=== PATIENT | male | born 1935 | race Caucasian/White ===

== ENCOUNTER 2024-08-14 07:55 | Inpatient (IN) | payer MEDICARE, OTHER ==
[2024-08-11 11:55] LABS: BILIRUBIN,URINE NEGATIVE (Neg); CLARITY,URINE CLEAR (Clear); COLOR,URINE YELLOW (Yellow); GLUCOSE, URINE NEGATIVE (Neg); KETONES,URINE NEGATIVE (Neg); LEUKOCYTE ESTERASE ,URINE NEGATIVE (Neg); NITRITES, URINE NEGATIVE (Neg); OCCULT BLOOD,URINE NEGATIVE (Neg); PROTEIN,URINE NEGATIVE (Neg); UROBILINOGEN,URINE 0.2 E.U/dL (0.2-1.0)
[2024-08-11 11:56] LABS: BASOPHILS # (AUTO) 0.1 X10'3 (0-0.2); BASOPHILS % (AUTO) 1.2 % (0-1); EOSINOPHILS # (AUTO) 0.3 X10'3 (0-0.9); EOSINOPHILS % (AUTO) 4.6 % (0-6); LYMPHOCYTES # (AUTO) 0.8 X10'3 (1.1-4.8); LYMPHOCYTES % (AUTO) 11.7 % (21-51); MEAN CORPUSCULAR HEMOGLOBIN 31.5 PG (27.0-31.0); MEAN CORPUSCULAR HGB CONC 34.4 g/dL (33.0-36.5); MEAN CORPUSCULAR VOLUME 91.7 FL (78-98); MEAN PLATELET VOLUME 7.9 FL (7.4-10.4); MONOCYTES # (AUTO) 0.7 X10'3 (0-0.9); MONOCYTES % (AUTO) 10.1 % (2-12); NEUTROPHILS # (AUTO) 4.9 X10'3 (1.8-7.7); NEUTROPHILS % (AUTO) 72.4 % (42-75); PRE OP HEMATOCRIT 31.4 % (42.0-52.0); PRE OP PLATELET COUNT 206 X10'3 (140-440); PRE OP WHITE BLOOD COUNT 6.8 10'3 (4.8-10.8); RED BLOOD COUNT 3.43 X10'6 (4.70-6.10); RED CELL DISTRIBUTION WIDTH 14.3 % (11.5-14.5)
[2024-08-11 11:59] LABS: PRE OP HEMOGLOBIN 10.8 g/dL (14.0-17.9)
[2024-08-11 12:00] LABS: UA COLLECTION TYPE CLN CATCH MIDSTREAM
[2024-08-11 12:08] LABS: PRE OP PROTIME 18.2 SECONDS (9.0-12.0)
[2024-08-11 12:14] LABS: PRE OP INR 1.8 INR
[2024-08-11 12:19] LABS: ALBUMIN 3.3 G/DL (3.4-5.0); ALBUMIN/GLOBULIN RATIO 0.9 (1.1-1.5); ALKALINE PHOSPHATASE 104 IU/L (46-116); BLOOD UREA NITROGEN 28 MG/DL (7-18); BUN/CREATININE RATIO 19.6 (10.0-20.0); CALCIUM 8.8 MG/DL (8.5-10.1); CHLORIDE 108 MMOL/L (99-107); CREATININE 1.43 MG/DL (0.60-1.10); PRE OP ALT 21 U/L (30-65); PRE OP ANION GAP 7 (8-16); PRE OP AST 23 U/L (10-37); PRE OP BILIRUB, TOTAL 0.9 MG/DL (0.0-1.0); PRE OP GLUCOSE 83 MG/DL (70-104); PRE OP POTASSIUM 3.5 MMOL/L (3.4-5.1); PRE OP SODIUM 145 MMOL/L (135-145); PRO BRAIN NATRIURETIC PEPTIDE 9639 PG/ML (0-450); TOTAL CARBON DIOXIDE 30.1 MMOL/L (24-32); TOTAL PROTEIN 6.9 G/DL (6.4-8.2); eGFR 47 ML/MIN
[~2024-08-14] VITALS: Ht 167.6 cm; Wt 69.7 kg
[2024-08-14] VITALS (35 sets, daily range): BP systolic 107–150; BP diastolic 51–84; PULSE 70–100; RESP 10–21; TEMP 97.2–98.1; O2SAT 91–100
[2024-08-14] MEDS: ceFAZolin 2gm in dextrose, iso 50 ML IV ONE (05:30)
[~2024-08-14 07:55] MED LIST: ASPI-1265 PO; ATOR40TA71 PO; BICA50TA7 PO; CLOP-32 PO; DICL50TA14 PO; DOCUMENT DATE & TIME OF BETA-BLOCKER PO ONE; ENOX40DI8 SUBCUT; FURO-150 PO; METO-395 PO; PANT40TA54 PO; VALS40TA11 PO; WARF4TAB69 PO; nitroPRUSSIDE (NIPRIDE) (200MCG/ML) 100ML Drip IV SCH; phenylephrine inj 50 MG in normal saline 250ml IV solN IV SCH; protamine sulfate 10mg/ml inj. ONE
[2024-08-14] MEDS ORDERED: ondansetron/PF 4mg/2ml inj IV PRN ×2 (08:55→12:30)
[2024-08-14] MEDS ORDERED: PHENYLephrine 10mg/ml inj. 100 MG in normal saline 250ml IV soln 240 ML IV SCH (08:55)
[2024-08-14] MEDS ORDERED: nitroPRUSSIDE sod inj. 50 MG in dextrose 5%-water 248 ML IV SCH (08:55)
[2024-08-14] MEDS: ringers solution, lacted 1,000 ML IV SCH ×2 (08:55→09:02)
[2024-08-14] MEDS ORDERED: morphine 4 MG/ML inj SYRINge IV PRN (08:55)
[2024-08-14] MEDS: famotidine 20mg tablet PO ONE (09:02)
[2024-08-14] MEDS: VANCOMYCIN 1GM 200ML H20 (PEG) 200 ML IV ONE (09:03)
[2024-08-14] MEDS ORDERED: iohexol 350MG/ML 100ml bottle IV ONE (10:10)
[2024-08-14] MEDS ORDERED: heparin 1,000 UNITS/NS 500ml 1,500 ML ONE (10:10)
[2024-08-14] MEDS ORDERED: non-formulary drug (Diclofenac Potassium 1 TAB) PO PRN (10:25)
[2024-08-14 10:33] LABS: APTT 31 SECONDS (22-32); INR 1.2 INR
[2024-08-14] MEDS ORDERED: desflurane 240ml liquid inh. IH ONE (10:55)
[2024-08-14] MEDS ORDERED: midazolam 1 mg/ML 2ml injection ONE (10:57)
[2024-08-14] MEDS ORDERED: fentaNYL/PF 50MCG/1 ML 2ML syringe ONE (10:57)
[2024-08-14] MEDS ORDERED: ondansetron/PF 4mg/2ml inj ONE (10:57)
[2024-08-14] MEDS ORDERED: LIDOcaine 1%/PF 5ML 10 MG/ML VIAL ONE (10:58)
[2024-08-14] MEDS ORDERED: heparin 1,000unit/ml 10ml vial 10 ML ONE (11:07)
[2024-08-14] MEDS ORDERED: propofol inj 20 ML IV ONE ×2 (11:07→12:01)
[2024-08-14] MEDS ORDERED: dexamethasone sod phosphate 4mg/ml inj. ONE (11:07)
[2024-08-14] MEDS ORDERED: HYDROcodone/acetaminophen 5mg/325mg tablet PO PRN (12:30)
[2024-08-14] MEDS ORDERED: potassium Cl 40MEQ/1/2NS 520ml 520 ML IV PRN (12:30)
[2024-08-14] MEDS ORDERED: magnesium sulf-water 4G/100mL 100 ML IV PRN (12:30)
[2024-08-14] MEDS ORDERED: labetalol 20mg/4ml (5mg/ml) syringe IV PRN (12:30)
[2024-08-14] MEDS ORDERED: magnesium sulf-water 2g/50mL 50 ML IV PRN (12:30)
[2024-08-14] MEDS ORDERED: ALPRAZolam 0.25mg tablet PO PRN (12:30)
[2024-08-14] MEDS ORDERED: acetaminophen 325mg tablet PO PRN (12:30)
[2024-08-14] MEDS ORDERED: pantoprazole 40mg Tablet.DR PO PRN (12:30)
[2024-08-14] MEDS ORDERED: diphenhydrAMINE 25mg capsule PO PRN (12:30)
[2024-08-14] MEDS ORDERED: hydrALAZINE 20mg/ml inj. IV PRN (12:30)
[2024-08-14] MEDS ORDERED: potassium CL 10mEq/100ml bag 100 ML IV PRN (12:30)
[2024-08-14] MEDS ORDERED: docusate sod 100mg capsule PO PRN (12:30)
[2024-08-14] MEDS ORDERED: proCHLORperazine 10 MG/2 ml inj IV PRN (12:30)
[2024-08-14] MEDS ORDERED: potassium Cl 20mEq/100mL bag 100 ML IV PRN (12:30)
[2024-08-14] MEDS ORDERED: potassium Cl 40MEQ/270ML bag 250 ML IV PRN (12:30)
[2024-08-14] MEDS: morphine 2 MG/ML inj. syringe IV PRN (14:21)
[2024-08-14] MEDS: labetalol 20mg/4ml (5mg/ml) syringe IV ONE (14:37)
[2024-08-14] MEDS: sod chloride 0.9% 10ml flush syringe IV SCH (16:00)
[2024-08-14] MEDS: normal saline 1000ml 1,000 ML IV SCH (17:18)
[2024-08-14] MEDS: ceFAZolin 1GM/D5W- ADD-VANTAGE 50 ML IV SCH (17:30)
[2024-08-14] MEDS ORDERED: enoxaparin 60mg/0.6ml syringe SUBCUT SCH (20:00)
[2024-08-14] MEDS ORDERED: warfarin 4mg tablet PO SCH (21:00)
[2024-08-14] MEDS: VANCOMYCIN 1GM 200ML H20 (PEG) 200 ML IV SCH (21:22)
[2024-08-14] MEDS: losartan 25mg tablet PO SCH (21:23)
[2024-08-14] MEDS: atorvastatin 20mg tablet PO SCH (21:23)
[2024-08-14] MEDS: warfarin 4mg tablet PO SCH (21:26)
[2024-08-15] VITALS: BP 130/63; PULSE 73; RESP 15
[2024-08-15 02:00] VITALS: BP 129/57; PULSE 70; RESP 15
[2024-08-15 04:00] VITALS: BP 124/53; PULSE 68; RESP 13
[2024-08-15 06:00] VITALS: BP 125/61; PULSE 68; RESP 12; TEMP 98; O2SAT 96
[2024-08-15 07:24] LABS: BASOPHILS % (AUTO) 0.2 % (0-1); EOSINOPHILS % (AUTO) 0 % (0-6); HEMATOCRIT 28.2 % (42.0-52.0); HEMOGLOBIN 9.9 g/dl (14.0-17.9); LYMPHOCYTES # (AUTO) 0.4 X10'3 (1.1-4.8); LYMPHOCYTES % (AUTO) 3.7 % (21-51); MEAN CORPUSCULAR HEMOGLOBIN 32.2 PG (27.0-31.0); MEAN CORPUSCULAR HGB CONC 35.2 g/dL (33.0-36.5); MEAN CORPUSCULAR VOLUME 91.6 FL (78-98); MEAN PLATELET VOLUME 8.5 FL (7.4-10.4); MONOCYTES % (AUTO) 10.4 % (2-12); NEUTROPHILS # (AUTO) 8.3 X10'3 (1.8-7.7); NEUTROPHILS % (AUTO) 85.7 % (42-75); PLATELET COUNT 156 X10'3 (140-440); RED BLOOD COUNT 3.08 X10'6 (4.70-6.10); RED CELL DISTRIBUTION WIDTH 14.5 % (11.5-14.5); WHITE BLOOD COUNT 9.6 X10'3 (4.5-11.0)
[2024-08-15] MEDS: aspirin 81mg tab.chew PO SCH (07:52)
[2024-08-15] MEDS: metoprolol succinate 25mg (24-HOUR) SR. Tablet PO SCH (07:52)
[2024-08-15] MEDS: furosemide 20MG tablet PO SCH (07:53)
[2024-08-15] MEDS: clopidogrel 75mg tablet PO SCH (07:54)
[2024-08-15] MEDS: pantoprazole 40mg Tablet.DR PO SCH (07:54)
[2024-08-15 08:00] VITALS: RESP 12; O2SAT 96
[2024-08-15 08:09] LABS: ALANINE AMINOTRANSFERASE 39 U/L (12-78); ALBUMIN/GLOBULIN RATIO 0.9 (1.1-1.5); ALKALINE PHOSPHATASE 99 IU/L (46-116); ANION GAP 10 (8-16); ASPARTATE AMINO TRANSFERASE 39 U/L (10-37); BILIRUBIN,TOTAL 0.6 MG/DL (0.1-1.0); BLOOD UREA NITROGEN 39 MG/DL (7-18); BUN/CREATININE RATIO 25.3 (10.0-20.0); CALCIUM 8.3 MG/DL (8.5-10.1); CHLORIDE 108 MMOL/L (99-107); CREATININE 1.54 MG/DL (0.60-1.10); GLUCOSE 132 MG/DL (70-104); POTASSIUM 3.4 MMOL/L (3.5-5.1); PRO BRAIN NATRIURETIC PEPTIDE 6917 PG/ML (0-450); SODIUM 144 MMOL/L (135-145); TOTAL CARBON DIOXIDE 26.3 MMOL/L (24-32); TOTAL PROTEIN 6.3 G/DL (6.4-8.2); eCRCL 31 ML/MIN; eGFR 43 ML/MIN
[2024-08-15] MEDS: potassium Cl 20 mEq SR tablet PO PRN (09:01)
[2024-08-15 11:00] VITALS: BP 128/62; PULSE 72; RESP 12; TEMP 98.7; O2SAT 95
[2024-08-15] MEDS ORDERED: ASPI-1265 PO (11:13)
== END 2024-08-15 13:25 | disposition home or self-care (01) | DRG 266 ==
LOC: UNDOADMIN 07:55 → PAS IN 07:55 → EDSTATUS 09:30 → PCU 3S 16:54
PROVIDERS: ADMIT Internal Medicine Cardiovascular Disease; ATTEND Internal Medicine Cardiovascular Disease
PROC: 03HY32Z Insertion of Monitoring Device into Upper Artery, Percutaneous Approach (ICD-10-PCS; 2024-08-14)
PROC: B4101ZZ Fluoroscopy of Abdominal Aorta using Low Osmolar Contrast (ICD-10-PCS; 2024-08-14)
PROC: B41G1ZZ Fluoroscopy of Left Lower Extremity Arteries using Low Osmolar Contrast (ICD-10-PCS; 2024-08-14)
PROC: 02RF38N Replacement of Aortic Valve with Zooplastic Tissue, using Rapid Deployment Technique, Percutaneous Approach (ICD-10-PCS; principal; 2024-08-14 10:55)
DX: I35.0 Nonrheumatic aortic (valve) stenosis (principal); Z00.6 Encounter for examination for normal comparison and control in clinical research program; I50.23 Acute on chronic systolic (congestive) heart failure; I11.0 Hypertensive heart disease with heart failure; I25.10 Atherosclerotic heart disease of native coronary artery without angina pectoris; E78.5 Hyperlipidemia, unspecified; Z86.711 Personal history of pulmonary embolism
CPT/HCPCS: 33361; 36415; 71045; 71046; 76937; 80053; 81003; 82948; 83735; 83880; 85025; 85347; 85610; 85730; 86885; 86900; 86901; 86920; 87081; 93005; 93308; A4615; A4618; A6258; A6449; A6590; C1756; C1760; C1769; C1894; G0378; J0690; J1100; J1644; J2250; J2270; J2371; J2405; J2704; J2720; J3010; J3372; J3490; J7030; J7040; J7050; J7120; Q9967